=== PATIENT | male | born 1940 | race Caucasian/White ===

== ENCOUNTER 2016-05-01 11:58 | Emergency (ER) | payer OTHER, MEDICARE ==
[2016-05-01 14:16] LABS: BASOPHIL 0.2 % (0-2); EOSINOPHIL 0 % (0-7); HCT 40.9 % (42.0-52.0); HGB 14.3 g/dl (13.2-18.0); LYMPHOCYTE 13.9 % (15-48); MCH 33.2 pg (25.0-31.0); MCV 94.9 fL (78.0-100.0); MPV 10.5 fL (6.0-9.5); NEUTROPHIL 77.9 % (41-80); PLT 84 K/uL (150-400); RBC 4.31 M/uL (4.70-6.00); RDW 14.9 % (11.5-14.0); WBC 4.6 K/uL (4.0-10.5)
[2016-05-01 14:25] LABS: INR 1.06 (0.9-1.2); PROTHROMBIN TIME 13.4 SECONDS (11.7-14.0)
[2016-05-01 14:36] LABS: CREATININE 1.2 mg/dL (0.7-1.2); POTASSIUM 3.9 mmol/L (3.5-5.1)
== END 2016-05-01 17:30 | disposition other institution (70) ==
LOC: FER 11:58
PROVIDERS: Emergency Medicine
DX: S72.001A Fracture of unspecified part of neck of right femur, initial encounter for closed fracture (principal); S32.401A Unspecified fracture of right acetabulum, initial encounter for closed fracture; S62.002A Unspecified fracture of navicular [scaphoid] bone of left wrist, initial encounter for closed fracture; S00.81XA Abrasion of other part of head, initial encounter; G93.9 Disorder of brain, unspecified; Z23 Encounter for immunization; V49.40XA Driver injured in collision with unspecified motor vehicles in traffic accident, initial encounter; Y92.410 Unspecified street and highway as the place of occurrence of the external cause
CPT/HCPCS: 36415; 70450; 71250; 72125; 73110; 73130; 73502; 73564; 80048; 85025; 85610; 85730; 90471; 90715; 93005; J2270; J2405